=== PATIENT | female | born 1990 | race Caucasian/White ===

== ENCOUNTER 2017-07-11 15:50 | Emergency (ER) | payer BC ==
[2017-07-11 17:03] LABS: BASOPHILS 0.3 % (0-2); EOSINOPHILS 0.5 % (0-7); HEMATOCRIT 36.5 % (36.0-48.0); HEMOGLOBIN 11.7 g/dL (12-16); IMMATURE GRANULOCYTES 0.1 % (0-5); LYMPHOCYTES 29.2 % (15-50); MCH 27.2 pg (26.0-34.0); MCHC 32.1 g/dL (31.0-37.0); MCV 84.9 fL (80.0-100.0); MEAN PLATELET VOLUME 12.5 fL (7.4-10.4); MONOCYTES 8.1 % (2-11); NEUTROPHILS 61.8 % (40-80); RDW 16.8 % (11.5-14.5); WBC 7.9 10x3/uL (4.8-10.8)
[2017-07-11 17:10] LABS: PLATELET COUNT 205 10x3/uL (130-400)
[2017-07-11 17:21] LABS: ALBUMIN 3.5 g/dL (3.4-5.0); ALKALINE PHOSPHATASE 77 U/L (46-116); ALT (SGPT) 20 U/L (10-68); CALC OSMOLALITY 277 mosm/kg (275-300); CALCIUM 9.5 mg/dL (8.5-10.1); CARBON DIOXIDE 26.2 mmol/L (21.0-32.0); CHLORIDE - SERUM 104 mmol/L (98-107); CREATININE - SERUM 0.6 mg/dL (0.6-1.3); GLUCOSE 90 mg/dL (74-106); HCG SERUM NEGATIVE (NEGATIVE); PROTEIN - SERUM 8.3 g/dL (6.4-8.2); SODIUM 140 mmol/L (136-145); UREA NITROGEN 10 mg/dL (7-18); eGFR NON AFRICAN AMERICAN > 90 mL/min (90-120)
== END 2017-07-11 19:17 | disposition home or self-care (01) ==
LOC: D.ER 15:50
PROVIDERS: Physician Assistant
DX: R51 Headache (principal); R55 Syncope and collapse; R11.0 Nausea

== ENCOUNTER 2017-07-17 00:19 | Emergency (ER) | payer BC ==
[2017-07-17 01:09] LABS: HCG URINE NEGATIVE (NEGATIVE)
== END 2017-07-17 02:42 | disposition home or self-care (01) ==
LOC: D.ER 00:19
PROVIDERS: Family Medicine
DX: S06.0X1A Concussion with loss of consciousness of 30 minutes or less, initial encounter (principal); W19.XXXA Unspecified fall, initial encounter; Y93.89 Activity, other specified; Y92.89 Other specified places as the place of occurrence of the external cause

== ENCOUNTER 2018-02-15 16:19 | Emergency (ER) | payer BC ==
[~2018-02-15] VITALS: Ht 167.6 cm; Wt 72.7 kg
[2018-02-15 16:38] VITALS: Ht 167.6 cm; Wt 72.7 kg
[2018-02-15] MEDS ORDERED: MELATONIN5 MG PO (16:41)
[2018-02-15] MEDS ORDERED: PREVACID15 MG PO (16:41)
[2018-02-15] MEDS ORDERED: SUPER B COMPLE150 MG PO (16:41)
[2018-02-15] MEDS ORDERED: CLARITIN 10 MG10 MG PO (16:41)
[2018-02-15 16:58] LABS: APPEARANCE CLOUDY (CLEAR); BILIRUBIN NEGATIVE (NEGATIVE); COLOR YELLOW (YELLOW); GLUCOSE NEGATIVE (NEGATIVE); KETONE NEGATIVE (NEGATIVE); NITRITE NEGATIVE (NEGATIVE); PROTEIN TRACE mg/dL (NEGATIVE); UROBILINOGEN NORMAL (NORMAL)
[2018-02-15 16:59] LABS: BACTERIA MODERATE /hpf (NONE SEEN); EPITHELIAL CELLS 0-5 /hpf (0-5); RED CELLS - URINE 0-5 /hpf (0-5); WHITE CELLS - URINE 0-5 /hpf (0-5)
[2018-02-15 17:00] LABS: MUCUS <1+ /lpf (NONE SEEN)
[2018-02-15 17:01] LABS: BASOPHILS 0.3 % (0-2); EOSINOPHILS 0.8 % (0-7); HEMATOCRIT 41.1 % (36.0-48.0); HEMOGLOBIN 13.1 g/dL (12-16); IMMATURE GRANULOCYTES 0.2 % (0-5); LYMPHOCYTES 20.7 % (15-50); MCH 28.2 pg (26.0-34.0); MCHC 31.9 g/dL (31.0-37.0); MCV 88.4 fL (80.0-100.0); MEAN PLATELET VOLUME 12.5 fL (7.4-10.4); MONOCYTES 7.1 % (2-11); NEUTROPHILS 70.9 % (40-80); PLATELET COUNT 221 10x3/uL (130-400); RBC 4.65 10x6/uL (4.00-5.40); RDW 16.9 % (11.5-14.5); WBC 11.7 10x3/uL (4.8-10.8)
[2018-02-15 17:14] LABS: ALBUMIN 3.9 g/dL (3.4-5.0); ALKALINE PHOSPHATASE 77 U/L (46-116); ALT (SGPT) 18 U/L (10-68); BILIRUBIN - TOTAL 0.38 mg/dL (0.2-1.3); CALC OSMOLALITY 277 mosm/kg (275-300); CARBON DIOXIDE 24.7 mmol/L (21.0-32.0); CHLORIDE - SERUM 102 mmol/L (98-107); CREATININE - SERUM 0.9 mg/dL (0.6-1.3); GLUCOSE 89 mg/dL (74-106); POTASSIUM - SERUM 3.4 mmol/L (3.5-5.1); PROTEIN - SERUM 9.2 g/dL (6.4-8.2); SODIUM 140 mmol/L (136-145); UREA NITROGEN 13 mg/dL (7-18); eGFR NON AFRICAN AMERICAN 78 mL/min (90-120)
[2018-02-15] MEDS ORDERED: MACROBID100 MG PO (19:12)
[2018-02-15 19:40] VITALS: BP 112/74
== END 2018-02-15 19:41 | disposition home or self-care (01) ==
LOC: D.ER 16:19
PROVIDERS: Emergency Medicine
DX: N39.0 Urinary tract infection, site not specified (principal); R35.0 Frequency of micturition; Z87.442 Personal history of urinary calculi

== ENCOUNTER 2018-05-22 12:48 | Emergency (ER) | payer BC ==
[~2018-05-22] VITALS: Ht 167.6 cm; Wt 72.6 kg
[~2018-05-22 12:48] MED LIST: CLARITIN 10 MG10 MG PO; MACROBID100 MG PO; MELATONIN5 MG PO; PREVACID15 MG PO; SUPER B COMPLE150 MG PO
[2018-05-22 12:57] VITALS: Ht 167.6 cm; Wt 72.6 kg
[2018-05-22] MEDS ORDERED: TESSALON PERLE100 MG PO (16:03)
[2018-05-22 17:15] VITALS: BP 134/79
== END 2018-05-22 17:16 | disposition home or self-care (01) ==
LOC: D.ER 12:48
PROVIDERS: Emergency Medicine
DX: J02.9 Acute pharyngitis, unspecified (principal)

== ENCOUNTER 2018-10-06 17:45 | Emergency (ER) | payer BC ==
[~2018-10-06] VITALS: Ht 167.6 cm; Wt 72.7 kg
[~2018-10-06 17:45] MED LIST changes: +TESSALON PERLE100 MG PO
[2018-10-06 17:58] VITALS: Ht 167.6 cm; Wt 72.7 kg
[2018-10-06 18:56] LABS: BASOPHILS 0.1 % (0-2); EOSINOPHILS 0.3 % (0-7); HEMATOCRIT 39.1 % (36.0-48.0); HEMOGLOBIN 12.7 g/dL (12-16); IMMATURE GRANULOCYTES 0.2 % (0-5); MCH 28.6 pg (26.0-34.0); MCHC 32.5 g/dL (31.0-37.0); MCV 88.1 fL (80.0-100.0); MEAN PLATELET VOLUME 12.8 fL (7.4-10.4); MONOCYTES 3.6 % (2-11); NEUTROPHILS 90.8 % (40-80); PLATELET COUNT 226 10x3/uL (130-400); RBC 4.44 10x6/uL (4.00-5.40); RDW 15.5 % (11.5-14.5); WBC 19.9 10x3/uL (4.8-10.8)
[2018-10-06 19:09] LABS: APPEARANCE TURBID (CLEAR); BILIRUBIN NEGATIVE (NEGATIVE); COLOR YELLOW (YELLOW); GLUCOSE NEGATIVE (NEGATIVE); KETONE NEGATIVE (NEGATIVE); NITRITE NEGATIVE (NEGATIVE); PROTEIN NEGATIVE (NEGATIVE); UROBILINOGEN NORMAL (NORMAL)
[2018-10-06 19:11] LABS: ALBUMIN 3.8 g/dL (3.4-5.0); ALKALINE PHOSPHATASE 91 U/L (46-116); ALT (SGPT) 23 U/L (10-68); AMYLASE - SERUM 68 U/L (25-115); BILIRUBIN - TOTAL 0.43 mg/dL (0.2-1.3); CALC OSMOLALITY 281 mosm/kg (275-300); CALCIUM 8.7 mg/dL (8.5-10.1); CARBON DIOXIDE 23.8 mmol/L (21.0-32.0); CHLORIDE - SERUM 104 mmol/L (98-107); CREATININE - SERUM 0.9 mg/dL (0.6-1.3); GLUCOSE 118 mg/dL (74-106); LIPASE 188 U/L (73-393); POTASSIUM - SERUM 3.6 mmol/L (3.5-5.1); PROTEIN - SERUM 8.5 g/dL (6.4-8.2); SODIUM 141 mmol/L (136-145); UREA NITROGEN 12 mg/dL (7-18); eGFR NON AFRICAN AMERICAN 78 mL/min (90-120)
[2018-10-06 19:19] LABS: EPITHELIAL CELLS 0-5 /hpf (0-5); RED CELLS - URINE OCC /hpf (0-5); WHITE CELLS - URINE OCC /hpf (0-5)
[2018-10-06 19:20] LABS: AMORPHOUS SEDIMENT <1+ /lpf (NONE SEEN); BACTERIA MODERATE /hpf (NONE SEEN)
[2018-10-06 22:57] LABS: HCG SERUM NEGATIVE (NEGATIVE)
[2018-10-06] MEDS ORDERED: ZOFRAN8 MG PO (23:18)
[2018-10-06] MEDS ORDERED: TORADOL10 MG PO (23:18)
[2018-10-07] MEDS ORDERED: ZOFRAN4 MG PO (00:33)
[2018-10-07] MEDS ORDERED: FLAGYL500 MG PO (00:33)
[2018-10-07] MEDS ORDERED: CIPRO500 MG PO (00:33)
[2018-10-07 01:30] VITALS: BP 112/80
== END 2018-10-07 01:30 | disposition home or self-care (01) ==
LOC: D.ER 17:45
PROVIDERS: Emergency Medicine; Family Medicine
DX: K52.9 Noninfective gastroenteritis and colitis, unspecified (principal)

== ENCOUNTER 2018-10-12 16:48 | Emergency (ER) | payer BC ==
[~2018-10-12] VITALS: Ht 167.6 cm; Wt 71.8 kg
[~2018-10-12 16:48] MED LIST changes: +CIPRO500 MG PO; +FLAGYL500 MG PO; +TORADOL10 MG PO; +ZOFRAN4 MG PO; +ZOFRAN8 MG PO
[2018-10-12 17:08] VITALS: Ht 167.6 cm; Wt 71.8 kg
[2018-10-12 18:22] LABS: BASOPHILS 0.3 % (0-2); HEMATOCRIT 35.1 % (36.0-48.0); HEMOGLOBIN 11.5 g/dL (12-16); IMMATURE GRANULOCYTES 0.1 % (0-5); LYMPHOCYTES 33.2 % (15-50); MCH 28.3 pg (26.0-34.0); MCHC 32.8 g/dL (31.0-37.0); MCV 86.5 fL (80.0-100.0); MEAN PLATELET VOLUME 12.4 fL (7.4-10.4); MONOCYTES 7.3 % (2-11); NEUTROPHILS 58.1 % (40-80); PLATELET COUNT 260 10x3/uL (130-400); RBC 4.06 10x6/uL (4.00-5.40); RDW 15.6 % (11.5-14.5)
[2018-10-12 18:42] LABS: ALBUMIN 3.3 g/dL (3.4-5.0); ALKALINE PHOSPHATASE 67 U/L (46-116); ALT (SGPT) 32 U/L (10-68); BILIRUBIN - TOTAL 0.26 mg/dL (0.2-1.3); CALC OSMOLALITY 276 mosm/kg (275-300); CALCIUM 8.7 mg/dL (8.5-10.1); CARBON DIOXIDE 27.4 mmol/L (21.0-32.0); CHLORIDE - SERUM 106 mmol/L (98-107); CREATININE - SERUM 0.8 mg/dL (0.6-1.3); GLUCOSE 101 mg/dL (74-106); POTASSIUM - SERUM 3.7 mmol/L (3.5-5.1); PROTEIN - SERUM 7.5 g/dL (6.4-8.2); SODIUM 140 mmol/L (136-145); UREA NITROGEN 6 mg/dL (7-18); eGFR NON AFRICAN AMERICAN 89 mL/min (90-120)
[2018-10-12 18:59] LABS: APPEARANCE CLEAR (CLEAR); BILIRUBIN NEGATIVE (NEGATIVE); COLOR YELLOW (YELLOW); GLUCOSE NEGATIVE (NEGATIVE); KETONE NEGATIVE (NEGATIVE); NITRITE NEGATIVE (NEGATIVE); PROTEIN NEGATIVE (NEGATIVE); UROBILINOGEN NORMAL (NORMAL)
[2018-10-12 19:00] LABS: BACTERIA FEW /hpf (NONE SEEN); RED CELLS - URINE OCC /hpf (0-5); WHITE CELLS - URINE OCC /hpf (0-5)
[2018-10-12 19:01] LABS: AMORPHOUS SEDIMENT <1+ /lpf (NONE SEEN); HCG URINE NEGATIVE (NEGATIVE)
[2018-10-12] MEDS ORDERED: PROBIOTIC1 EAC1 PO (19:53)
[2018-10-12] MEDS ORDERED: PHENERGAN25 M1 PO (19:53)
[2018-10-12] MEDS ORDERED: LOMOTIL 2.5-0.1 EAC1 PO (19:54)
[2018-10-12 20:13] VITALS: BP 136/81
== END 2018-10-12 20:14 | disposition home or self-care (01) ==
LOC: D.ER 16:48
PROVIDERS: Family Medicine
DX: K52.9 Noninfective gastroenteritis and colitis, unspecified (principal)

== ENCOUNTER 2018-10-21 19:51 | Emergency (ER) | payer BC ==
[~2018-10-21] VITALS: Ht 167.6 cm; Wt 72.5 kg
[~2018-10-21 19:51] MED LIST changes: +LOMOTIL 2.5-0.1 EAC1 PO; +PHENERGAN25 M1 PO; +PROBIOTIC1 EAC1 PO
[2018-10-21 20:11] VITALS: Ht 167.6 cm; Wt 72.5 kg
[2018-10-21 21:13] LABS: BASOPHILS 0.2 % (0-2); EOSINOPHILS 1.1 % (0-7); HEMATOCRIT 35.6 % (36.0-48.0); HEMOGLOBIN 11.7 g/dL (12-16); IMMATURE GRANULOCYTES 0.1 % (0-5); LYMPHOCYTES 35.7 % (15-50); MCH 28.2 pg (26.0-34.0); MCHC 32.9 g/dL (31.0-37.0); MCV 85.8 fL (80.0-100.0); MEAN PLATELET VOLUME 12.4 fL (7.4-10.4); MONOCYTES 9.8 % (2-11); NEUTROPHILS 53.1 % (40-80); RBC 4.15 10x6/uL (4.00-5.40); RDW 15.6 % (11.5-14.5)
[2018-10-21 21:16] LABS: PLATELET COUNT 186 10x3/uL (130-400)
[2018-10-21 21:26] LABS: ALBUMIN 3.4 g/dL (3.4-5.0); ALKALINE PHOSPHATASE 71 U/L (46-116); ALT (SGPT) 24 U/L (10-68); BILIRUBIN - TOTAL 0.27 mg/dL (0.2-1.3); CALC OSMOLALITY 277 mosm/kg (275-300); CALCIUM 8.8 mg/dL (8.5-10.1); CHLORIDE - SERUM 104 mmol/L (98-107); CREATININE - SERUM 0.7 mg/dL (0.6-1.3); GLUCOSE 85 mg/dL (74-106); POTASSIUM - SERUM 4.1 mmol/L (3.5-5.1); SODIUM 141 mmol/L (136-145); UREA NITROGEN 8 mg/dL (7-18); eGFR NON AFRICAN AMERICAN > 90 mL/min (90-120)
[2018-10-21 21:33] LABS: AMYLASE - SERUM 63 U/L (25-115); LIPASE 193 U/L (73-393)
[2018-10-21 21:42] LABS: TROPONIN-I < 0.017 ng/mL (0.000-0.060)
[2018-10-21] MEDS ORDERED: FLAGYL500 MG PO (22:32)
[2018-10-21] MEDS ORDERED: IMODIUM2 MG PO (22:32)
[2018-10-21 23:24] VITALS: BP 104/69
[2018-10-21 23:46] LABS: HCG URINE NEGATIVE (NEGATIVE)
[2018-10-21 23:49] LABS: APPEARANCE HAZY (CLEAR); BILIRUBIN NEGATIVE (NEGATIVE); COLOR YELLOW (YELLOW); GLUCOSE NEGATIVE (NEGATIVE); KETONE NEGATIVE (NEGATIVE); NITRITE NEGATIVE (NEGATIVE); PROTEIN NEGATIVE (NEGATIVE); UROBILINOGEN NORMAL (NORMAL)
[2018-10-21 23:50] LABS: BACTERIA MODERATE /hpf (NONE SEEN); EPITHELIAL CELLS 0-5 /hpf (0-5); RED CELLS - URINE 0-5 /hpf (0-5); WHITE CELLS - URINE 0-5 /hpf (0-5)
== END 2018-10-21 23:24 | disposition home or self-care (01) ==
LOC: D.ER 19:51
PROVIDERS: Emergency Medicine
DX: K52.9 Noninfective gastroenteritis and colitis, unspecified (principal); R11.2 Nausea with vomiting, unspecified

== ENCOUNTER → 2019-02-02 12:39 | Outpatient (CLI) | payer BC ==
[2018-10-21 20:11] VITALS: BMI 25.7
[~2019-02-02 12:39] MED LIST changes: +IMODIUM2 MG PO
== END | disposition home or self-care (01) ==
LOC: D.NM 12:39
PROVIDERS: ATTEND Internal Medicine Gastroenterology
DX: R10.11 Right upper quadrant pain (principal); R11.0 Nausea

== ENCOUNTER 2019-02-23 06:01 | Day surgery (SDC) | payer BC, OTHER ==
[2019-02-20 15:26] LABS: HEMATOCRIT 36.1 % (36.0-48.0); HEMOGLOBIN 11.4 g/dL (12-16); MCH 27.7 pg (26.0-34.0); MCHC 31.6 g/dL (31.0-37.0); MCV 87.6 fL (80.0-100.0); MEAN PLATELET VOLUME 12.2 fL (7.4-10.4); RBC 4.12 10x6/uL (4.00-5.40); RDW 15.6 % (11.5-14.5); WBC 7.2 10x3/uL (4.8-10.8)
[~2019-02-23] VITALS: Ht 167.6 cm; Wt 73.5 kg
[~2019-02-23 06:01] MED LIST changes: +BUPROPION HCL75 MG PO; +OMEPRAZOLE40 MG PO; +RESTORIL7.5 MG PO
[2019-02-23] MEDS ORDERED: FEXOFENADINE HC60 MG PO (06:14)
[2019-02-23] MEDS ORDERED: FLUTICASONE PRO16 GM NASAL (06:14)
[2019-02-23 06:16] VITALS: BP 128/89; Ht 167.6 cm; Wt 73.5 kg
[2019-02-23] MEDS ORDERED: HYDROCODON-ACE1 EAC7 PO (08:42)
[2019-02-23] MEDS ORDERED: ZOFRAN ODT4 MG/UDTAB PO (10:57)
--- NOTE | 2019-02-23 11:59 | NUR ---
1150 DC INSTS REVIEWED VOICED UNDERSTANDING RELEASED IN WC WITH [employer]. [employer] [employer].
== END 2019-02-23 11:50 | disposition home or self-care (01) ==
LOC: D.OPS 06:01 → D.PAN 08:00 → D.OPS 08:00
PROVIDERS: Anesthesiology; ATTEND Surgery
DX: K82.8 Other specified diseases of gallbladder (principal); J45.909 Unspecified asthma, uncomplicated; Z90.81 Acquired absence of spleen

== ENCOUNTER 2019-03-13 13:51 | Emergency (ER) | payer BC, OTHER ==
[~2019-03-13] VITALS: Ht 167.6 cm; Wt 73.6 kg
[~2019-03-13 13:51] MED LIST changes: +FEXOFENADINE HC60 MG PO; +FLUTICASONE PRO16 GM NASAL; +HYDROCODON-ACE1 EAC7 PO; +ZOFRAN ODT4 MG/UDTAB PO
[2019-03-13 14:05] VITALS: Ht 167.6 cm; Wt 73.6 kg
[2019-03-13 14:30] LABS: APPEARANCE CLEAR (CLEAR); BILIRUBIN NEGATIVE (NEGATIVE); COLOR YELLOW (YELLOW); GLUCOSE NEGATIVE (NEGATIVE); KETONE NEGATIVE (NEGATIVE); NITRITE NEGATIVE (NEGATIVE); PROTEIN NEGATIVE (NEGATIVE); UROBILINOGEN NORMAL (NORMAL)
[2019-03-13 14:35] LABS: BASOPHILS 0.6 % (0-2); EOSINOPHILS 2.5 % (0-7); HEMATOCRIT 35.7 % (36.0-48.0); HEMOGLOBIN 11.5 g/dL (12-16); IMMATURE GRANULOCYTES 0.3 % (0-5); LYMPHOCYTES 29.2 % (15-50); MCH 27.7 pg (26.0-34.0); MCHC 32.2 g/dL (31.0-37.0); MEAN PLATELET VOLUME 12.4 fL (7.4-10.4); MONOCYTES 7.8 % (2-11); NEUTROPHILS 59.6 % (40-80); PLATELET COUNT 270 10x3/uL (130-400); RBC 4.15 10x6/uL (4.00-5.40); RDW 15.9 % (11.5-14.5); WBC 11.2 10x3/uL (4.8-10.8)
[2019-03-13 14:39] LABS: UDS - AMPHET NEGATIVE QUAL (NEGATIVE); UDS - BARB NEGATIVE QUAL (NEGATIVE); UDS - BENZO NEGATIVE QUAL (NEGATIVE); UDS - COCAINE NEGATIVE QUAL (NEGATIVE); UDS - OPIATE NEGATIVE QUAL (NEGATIVE); UDS - PCP NEGATIVE QUAL (NEGATIVE); UDS - THC NEGATIVE QUAL (NEGATIVE)
[2019-03-13 14:52] LABS: CALC OSMOLALITY 277 mosm/kg (275-300); CALCIUM 8.7 mg/dL (8.5-10.1); CARBON DIOXIDE 22.8 mmol/L (21.0-32.0); CHLORIDE - SERUM 104 mmol/L (98-107); CREATININE - SERUM 0.7 mg/dL (0.6-1.3); GLUCOSE 87 mg/dL (74-106); POTASSIUM - SERUM 3.8 mmol/L (3.5-5.1); SODIUM 139 mmol/L (136-145); UREA NITROGEN 15 mg/dL (7-18); eGFR NON AFRICAN AMERICAN > 90 mL/min (90-120)
[2019-03-13 14:58] LABS: ALBUMIN 3.6 g/dL (3.4-5.0); ALKALINE PHOSPHATASE 78 U/L (46-116); ALT (SGPT) 15 U/L (10-68); BILIRUBIN - TOTAL 0.25 mg/dL (0.2-1.3); MAGNESIUM - SERUM 2.1 mg/dL (1.8-2.4); PROTEIN - SERUM 8.1 g/dL (6.4-8.2)
[2019-03-13 17:02] VITALS: BP 143/74
== END 2019-03-13 17:04 | disposition home or self-care (01) ==
LOC: D.ER 13:51
PROVIDERS: Family Medicine
DX: R51 Headache (principal); D64.9 Anemia, unspecified; D72.829 Elevated white blood cell count, unspecified

== ENCOUNTER → 2019-08-25 13:45 | Outpatient (CLI) | payer BC ==
[2019-03-13 14:05] VITALS: BMI 26.2
== END | disposition home or self-care (01) ==
LOC: D.US 13:45
PROVIDERS: ATTEND Family Medicine
DX: N39.0 Urinary tract infection, site not specified (principal)

== ENCOUNTER → 2019-11-23 15:30 | Outpatient (CLI) | payer BC ==
[2019-03-13 14:05] VITALS: BMI 26.2
== END | disposition home or self-care (01) ==
LOC: D.RAD 15:30
PROVIDERS: ATTEND Internal Medicine Gastroenterology
DX: K59.00 Constipation, unspecified (principal)

== ENCOUNTER → 2020-05-02 08:36 | Outpatient (CLI) | payer BC ==
[2019-03-13 14:05] VITALS: BMI 26.2
== END | disposition home or self-care (01) ==
LOC: D.NM 04-19 08:00
PROVIDERS: ATTEND Internal Medicine Gastroenterology
DX: R10.84 Generalized abdominal pain (principal); R11.0 Nausea

== ENCOUNTER 2020-05-13 10:12 | Emergency (ER) | payer BC ==
[~2020-05-13] VITALS: Ht 167.6 cm; Wt 72.7 kg
[2020-05-13 10:18] VITALS: Ht 167.6 cm; Wt 72.7 kg
[2020-05-13] MEDS ORDERED: KEPPRA500 MG PO (10:43)
[2020-05-13] MEDS ORDERED: GABAPENTIN300 MG PO (10:44)
[2020-05-13 10:55] VITALS: BP 167/80
[2020-05-13] MEDS ORDERED: ATIVAN1 MG PO (10:58)
[2020-05-13 11:35] LABS: BASOPHILS 0.6 % (0-2); EOSINOPHILS 0.4 % (0-7); HEMOGLOBIN 12.5 g/dL (12-16); IMMATURE GRANULOCYTES 0.1 % (0-5); LYMPHOCYTE ABS# 2.05 10x3/uL (1.18-3.74); LYMPHOCYTES 30.5 % (15-50); MCH 28.8 pg (26.0-34.0); MCHC 32.1 g/dL (31.0-37.0); MCV 89.9 fL (80.0-100.0); MEAN PLATELET VOLUME 12.5 fL (7.4-10.4); MONOCYTES 6.5 % (2-11); NEUTROPHIL ABS# 4.16 10x3/uL (1.56-6.13); NEUTROPHILS 61.9 % (40-80); PLATELET COUNT 234 10x3/uL (130-400); RBC 4.34 10x6/uL (4.00-5.40); RDW 14.3 % (11.5-14.5); WBC 6.7 10x3/uL (4.8-10.8)
[2020-05-13 12:07] LABS: CALC OSMOLALITY 277 mosm/kg (275-300); CALCIUM 8.8 mg/dL (8.5-10.1); CARBON DIOXIDE 27.2 mmol/L (21.0-32.0); CHLORIDE - SERUM 104 mmol/L (98-107); CREATININE - SERUM 0.8 mg/dL (0.6-1.3); GLUCOSE 99 mg/dL (74-106); POTASSIUM - SERUM 3.9 mmol/L (3.5-5.1); SODIUM 139 mmol/L (136-145); UREA NITROGEN 12 mg/dL (7-18); eGFR NON AFRICAN AMERICAN 89 mL/min (90-120)
[2020-05-13 12:13] LABS: ALBUMIN 3.7 g/dL (3.4-5.0); ALKALINE PHOSPHATASE 71 U/L (30-120); ALT (SGPT) 23 U/L (10-68); BILIRUBIN - TOTAL 0.32 mg/dL (0.2-1.3); MAGNESIUM - SERUM 2.3 mg/dL (1.8-2.4); PROTEIN - SERUM 8.3 g/dL (6.4-8.2)
== END 2020-05-13 13:06 | disposition home or self-care (01) ==
LOC: D.ER 10:12
PROVIDERS: Emergency Medicine
DX: G40.A09 Absence epileptic syndrome, not intractable, without status epilepticus (principal)

== ENCOUNTER 2020-08-10 20:57 | Emergency (ER) | payer BC ==
[~2020-08-10] VITALS: Ht 167.6 cm; Wt 70.5 kg
[~2020-08-10 20:57] MED LIST changes: +ATIVAN1 MG PO; +GABAPENTIN300 MG PO; +KEPPRA500 MG PO
[2020-08-10 21:11] VITALS: Ht 167.6 cm; Wt 70.5 kg
[2020-08-10 22:24] LABS: HEMOGLOBIN 12.8 g/dL (12-16); MCH 28.1 pg (26.0-34.0); NEUTROPHILS 79.7 % (40-80)
[2020-08-10 22:25] LABS: BACTERIA FEW HPF (<MOD); BILIRUBIN NEGATIVE (NEGATIVE); KETONE NEGATIVE mg/dL (< 1+); NITRITE NEGATIVE (NEGATIVE); SQUAMOUS EPITHELIAL 2 HPF (0-4); UDS - AMPHET NEGATIVE QUAL (NEGATIVE); UDS - BARB NEGATIVE QUAL (NEGATIVE); UDS - BENZO NEGATIVE QUAL (NEGATIVE); UDS - COCAINE NEGATIVE QUAL (NEGATIVE); UDS - OPIATE NEGATIVE QUAL (NEGATIVE); UDS - PCP NEGATIVE QUAL (NEGATIVE); UDS - THC POSITIVE QUAL (NEGATIVE); UROBILINOGEN NORMAL mg/dL (< 2); WHITE CELLS - URINE 4 HPF (0-4)
[2020-08-10 22:26] LABS: BASOPHILS 0.8 % (0-2); EOSINOPHILS 0.2 % (0-7); HEMATOCRIT 40.4 % (36.0-48.0); LYMPHOCYTES 15.2 % (15-50); MCHC 31.6 g/dL (31.0-37.0); MCV 88.7 fL (80.0-100.0); MEAN PLATELET VOLUME 11.4 fL (7.4-10.4); MONOCYTES 4.1 % (2-11); PLATELET COUNT 203 10x3/uL (130-400); RBC 4.56 10x6/uL (4.00-5.40); RDW 14.8 % (11.5-14.5); WBC 12.9 10x3/uL (4.8-10.8)
[2020-08-10 22:30] LABS: CALC OSMOLALITY 272 mosm/kg (275-300); CARBON DIOXIDE 24.1 mmol/L (21.0-32.0); CHLORIDE - SERUM 104 mmol/L (98-107); CREATININE - SERUM 0.8 mg/dL (0.6-1.3); GLUCOSE 93 mg/dL (74-106); SODIUM 137 mmol/L (136-145); UREA NITROGEN 11 mg/dL (7-18); eGFR NON AFRICAN AMERICAN 89 mL/min (90-120)
[2020-08-10 22:30] LABS: HCG URINE NEGATIVE (NEGATIVE)
[2020-08-10 22:36] LABS: ALBUMIN 3.5 g/dL (3.4-5.0); ALKALINE PHOSPHATASE 80 U/L (30-120); ALT (SGPT) 21 U/L (10-68); BILIRUBIN - TOTAL 0.16 mg/dL (0.2-1.3); MAGNESIUM - SERUM 2.2 mg/dL (1.8-2.4); PROTEIN - SERUM 8.5 g/dL (6.4-8.2)
[2020-08-11 00:42] VITALS: BP 144/79
== END 2020-08-11 00:42 | disposition home or self-care (01) ==
LOC: D.ER 20:57
PROVIDERS: Emergency Medicine
DX: R56.9 Unspecified convulsions (principal); R41.0 Disorientation, unspecified; R44.3 Hallucinations, unspecified